=== PATIENT | male | born 1955 | race Caucasian/White ===

== ENCOUNTER 2019-01-02 16:14 | Inpatient (IN) | payer MEDICAID ==
[~2019-01-02] VITALS: Ht 180.3 cm; Wt 151.5 kg
[~2019-01-02 16:14] MED LIST: BUPIVACAINE /PF 0.5% 30 ML VIAL INJ ONE; LR 1,000 ML IV.SOLN IV ONE; MIDAZOLAM HCL 5 MG/5 ML VIAL IVP ONE; NS IRRIG SOLN 1000 ML IR ONE; PROPOFOL 200MG/ 20ML VIAL (DIPRIVAN) IV ONE
[2019-01-02 16:19] VITALS: BP_SYST 143
--- NOTE | 2019-01-02 16:21 | NUR ---
Patient presented to ER with shortness of breath x4 days. Patient arrived BLS from [facility]; patient of [facility] x 8 days. Patient A&Ox4, afebrile, skin pink, capillary refill less than 3 seconds, ambualtory with walker, saturation 100% on Room Air, tachynea noted with respirations equal bilat. Patient states he has had SOB x4 days with pain 6/10, lower back pain 7/10, denies N/V/D at htis time. Patient placed on cardiac monito and pilse-ox upon arrival, will continue to monitor
--- NOTE | 2019-01-02 16:25 | NUR ---
Placed in room 01 . Placed on potline monitor, blood pressure machine and pulse oximeter. To gown for exam. Side rails up. Report given to Africa ADDISON.
--- NOTE | 2019-01-02 16:51 | NUR ---
ER Dr. Mcguire at bedside examining patient.
[2019-01-02] MEDS ORDERED: ALBMDI INH (16:53)
[2019-01-02] MEDS ORDERED: ACET-2165 PO (16:53)
[2019-01-02] MEDS ORDERED: RISP3TAB5 PO (16:53)
[2019-01-02] MEDS ORDERED: AMLO5TAB4 PO (16:53)
[2019-01-02] MEDS ORDERED: LITH150C PO (16:53)
[2019-01-02] MEDS ORDERED: SULF1TAB48 PO (16:53)
[2019-01-02] MEDS ORDERED: VIS50 PO (16:53)
[2019-01-02] MEDS ORDERED: REM15 PO (16:53)
[2019-01-02] MEDS ORDERED: ATRMDI INH (16:53)
[2019-01-02] MEDS ORDERED: CAT.1 PO (16:53)
[2019-01-02] MEDS ORDERED: LIP20 PO (16:53)
[2019-01-02] MEDS ORDERED: TRAZ-218 PO (16:53)
[2019-01-02] MEDS ORDERED: MOM PO (16:53)
[2019-01-02] MEDS ORDERED: ANT30 PO (16:53)
--- NOTE | 2019-01-02 16:54 | NUR ---
Medication reconciliation completed with information provided by facility. Any prior medication reconciliation on file was reviewed and corrected.
[2019-01-02] MEDS ORDERED: IPRATROPIUM/ALBUTEROL SULFATE 3 ML AMPUL.NEB (DUONEB) INH ONE (17:00)
--- NOTE | 2019-01-02 17:02 | NUR ---
Lab at bedside for blood draw
--- NOTE | 2019-01-02 17:04 | NUR ---
Respiratory at bedside for breathing tx
--- NOTE | 2019-01-02 17:17 | NUR ---
Radiology staff at bedside for x-ray
[2019-01-02 17:45] LABS: HEMATOCRIT 31.6 % (36-54); HEMOGLOBIN 10.5 g/dL (14.0-18.0); MEAN CORPUSCULAR HEMOGLOBIN 31 pg (27-31); MEAN CORPUSCULAR HGB CONC 33 % (32-36); MEAN CORPUSCULAR VOLUME 94 fL (79.0-98.0); PLATELET COUNT (AUTO) 263 K/uL (130-430); RED BLOOD CELL COUNT(AUTO) 3.38 MIL/uL (4.2-6.2); RED CELL DISTRIBUTION WIDTH 13.9 % (9.0-15.0); WHITE BLOOD COUNT (AUTO) 10.6 K/uL (4.8-10.8)
[2019-01-02 17:46] LABS: BASOPHILS % (AUTO) 0.4 % (0.0-2.0); EOSINOPHILS # (AUTO) 0.3 K/uL (0.0-0.4); EOSINOPHILS % (AUTO) 2.8 % (0.0-4.0); LYMPHOCYTES # (AUTO) 1.4 K/uL (1.0-5.5); LYMPHOCYTES % (AUTO) 13.5 % (20.5-51.5); MONOCYTES # (AUTO) 0.6 K/uL (0.0-1.0); MONOCYTES % (AUTO) 6.1 % (1.7-9.3); NEUTROPHILS # (AUTO) 8.1 K/uL (1.8-7.7); NEUTROPHILS % (AUTO) 77.2 % (40.0-70.0)
[2019-01-02 17:58] LABS: CALCIUM 8.8 mg/dL (8.4-11.0); CREATININE 0.79 mg/dL (0.55-1.30); INR 0.9 (0.80-1.20); POTASSIUM 4.5 mmol/L (3.5-5.1); PROTHROMBIN TIME 9.5 SECS (9.5-12.5)
[2019-01-02 18:03] LABS: TOTAL BILIRUBIN 0.3 mg/dL (0.0-1.0)
--- NOTE | 2019-01-02 18:15 | NUR ---
Patient in [facility]
--- NOTE | 2019-01-02 19:17 | NUR ---
ER at bedside discussing admission with patient.
--- NOTE | 2019-01-02 19:20 | NUR ---
Report given to Andree ADDISON
[2019-01-02 20:16] LABS: BILIRUBIN,URINE NEGATIVE (NEGATIVE); BLOOD, URINE NEGATIVE (NEGATIVE); CLARITY/URINE CLEAR (CLEAR); COLOR,URINE YELLOW (YELLOW); GLUCOSE,URINE NEGATIVE (NEGATIVE); KETONES,URINE NEGATIVE (NEGATIVE); LEUKOCYTE ESTERASE ,URINE NEGATIVE (NEGATIVE); NITRITE, URINE NEGATIVE (NEGATIVE); PH,URINE 6.5 (5.0-8.0); PROTEIN URINE NEGATIVE (NEGATIVE); UROBILINOGEN,URINE 0.2 (0.2-1.0)
--- NOTE | 2019-01-02 20:48 | NUR ---
Spoke to nurse at [facility]. She says that pt is on voluntary hold and she will fax corresponding progress note.
--- NOTE | 2019-01-02 21:00 | NUR ---
Patient will be admitted to care of Dr. Boo. Admitted to Tele unit. Will go to room 111B. Belongings list completed. Summary report printed. Report will be given at bedside.
--- NOTE | 2019-01-02 21:05 | NUR ---
Received fax from Nancy for pt request for voluntary admission. Placed in chart.
[2019-01-02 21:25] VITALS: BP_SYST 111
--- NOTE | 2019-01-02 21:25 | NUR ---
ADMISSION NOTE Received patient from ER via gurney. Patient admitted with diagnosis of COPD EXACERBATION. Patient is awake, alert, oriented X 4. Patient oriented to hospital room, call light, toileting, pain management and safety-teach back done. Patient informed that CLARITA will be HIS nurse and that their room number is 111B. Personal belongings checked and Belongings List documented. Call light within reach.
--- NOTE | 2019-01-02 21:25 | NUR ---
Transfer to Tele via ACLS protocol. Licensed nurse present. IV present no signs or symptoms of infiltration.
--- NOTE | 2019-01-02 21:27 | NUR ---
No Suicidal Ideation Patient denies suicidal ideation at this time. Will continue to monitor.
[2019-01-02 21:35] VITALS: BP_SYST 105
[2019-01-02 21:54] VITALS: BP_SYST 143
[2019-01-02] MEDS ORDERED: IPRATROPIUM/ALBUTEROL SULFATE 3 ML AMPUL.NEB (DUONEB) INH SCH (23:00)
[2019-01-02] MEDS ORDERED: MAG-AL HYDROX/SIMETH 30 ML UDC PO PRN (23:15)
[2019-01-02] MEDS ORDERED: traZODone HCL 50 MG TABLET (DESYREL) PO PRN (23:15)
[2019-01-02] MEDS ORDERED: LORazepam 2 MG/ML VIAL IVP PRN (23:15)
[2019-01-02] MEDS ORDERED: MILK OF MAGNESIA 30 ML UDC PO PRN (23:15)
[2019-01-02] MEDS ORDERED: MIRTAZAPINE 15 MG TABLET PO ONE (23:15)
[2019-01-02] MEDS ORDERED: cloNIDine HCL 0.1 MG TABLET PO PRN (23:15)
[2019-01-02] MEDS ORDERED: risperiDONE 1 MG TABLET (RisperDAL) PO ONE (23:15)
--- NOTE | 2019-01-02 23:30 | NUR ---
Rounds Patient is resting at this time. No c/o pain and no s/s of any distress noted. Call light in reach, will cont to monitor.
[2019-01-02] MEDS: BACITRACIN ZINC 15 GM TOPICAL OINTMENT TP SCH (23:45)
[2019-01-02] MEDS ORDERED: ENOXAPARIN SODIUM 40 MG/0.4 ML SYRINGE SUBCUT ONE (23:45)
--- NOTE | 2019-01-03 00:56 | NUR ---
CONSULT: CONSULT CALLED FOR DR. ELLER I SPOKE WITH OMEROELENITA PATTERSON REASON FOR CONSULT: DEPRESSION REQUESTING CONSULT: DR. WASHINGTON SOAP GRINDER PHONE NUMBER: [phone]
[2019-01-03 01:18] VITALS: BP_SYST 115
--- NOTE | 2019-01-03 01:30 | NUR ---
Rounds Patient is resting comfortably at this time. No c/o pain and no s/s of any distress noted. Call light in reach, will cont to monitor.
[2019-01-03] MEDS: IPRATROPIUM/ALBUTEROL SULFATE 3 ML AMPUL.NEB (DUONEB) INH PRN (03:13)
--- NOTE | 2019-01-03 03:30 | NUR ---
Rounds Assisted to the bathroom and safely back to bed. Will cont to monitor.
[2019-01-03] MEDS ORDERED: CLINDAMYCIN 600 mg/50mL D5W 50 ML IV ONE (04:07)
--- NOTE | 2019-01-03 07:05 | NUR ---
End of shift note Patient is awake waiting for breakfast. No c/o pain and no s/s of any distress noted. All needs met and anticipated by nurses. Will endorse care to incoming nurse.
--- NOTE | 2019-01-03 07:20 | NUR ---
RN OPENING NOTE RECEIVED SBAR REPORT AT BEDSIDE FROM ENDORSING RN. SEE VS FLOW SHEET.
[2019-01-03 07:38] LABS: CALCIUM 8.5 mg/dL (8.4-11.0); CREATININE 0.78 mg/dL (0.55-1.30); POTASSIUM 4.3 mmol/L (3.5-5.1)
[2019-01-03 07:51] LABS: ALBUMIN 2.5 g/dL (3.4-4.8); FREE T4 (FREE THYROXINE) 1.1 ng/dl (0.8-1.5); THYROID STIMULATING HORMONE 0.38 uIu/mL (0.36-3.74); TOTAL BILIRUBIN 0.2 mg/dL (0.0-1.0)
[2019-01-03 07:57] VITALS: BP_SYST 120
[2019-01-03 08:15] LABS: HEMATOCRIT 29.7 % (36-54); HEMOGLOBIN 9.8 g/dL (14.0-18.0); MEAN CORPUSCULAR HEMOGLOBIN 31 pg (27-31); MEAN CORPUSCULAR HGB CONC 33 % (32-36); MEAN CORPUSCULAR VOLUME 94 fL (79.0-98.0); PLATELET COUNT (AUTO) 241 K/uL (130-430); RED BLOOD CELL COUNT(AUTO) 3.17 MIL/uL (4.2-6.2); RED CELL DISTRIBUTION WIDTH 13.7 % (9.0-15.0); WHITE BLOOD COUNT (AUTO) 7.4 K/uL (4.8-10.8)
[2019-01-03 08:16] LABS: BASOPHILS % (AUTO) 0.6 % (0.0-2.0); EOSINOPHILS # (AUTO) 0.2 K/uL (0.0-0.4); EOSINOPHILS % (AUTO) 2.5 % (0.0-4.0); LYMPHOCYTES % (AUTO) 13.2 % (20.5-51.5); MONOCYTES # (AUTO) 0.5 K/uL (0.0-1.0); MONOCYTES % (AUTO) 6.8 % (1.7-9.3); NEUTROPHILS # (AUTO) 5.7 K/uL (1.8-7.7); NEUTROPHILS % (AUTO) 76.9 % (40.0-70.0)
[2019-01-03] MEDS: CLINDAMYCIN 600 MG in D5W 50 ML IV SCH ×5 (08:53→17:26)
[2019-01-03] MEDS: risperiDONE 1 MG TABLET (RisperDAL) PO SCH ×2 (08:54→20:36)
[2019-01-03] MEDS: ATORVASTATIN 20 MG TABLET PO SCH (08:55)
[2019-01-03] MEDS: LACTOBACILLUS RHAMNOSUS GG 1 CAP CAPSULE PO SCH ×2 (08:55→20:36)
[2019-01-03] MEDS: BACITRACIN ZINC 15 GM TOPICAL OINTMENT TP SCH ×2 (08:55→20:37)
[2019-01-03] MEDS: amLODIPine BESYLATE 5 MG TABLET PO SCH (08:55)
--- NOTE | 2019-01-03 10:00 | NUR ---
SUICIDAL FOLLOW-UP PT STATED NO SI, AND SAID HE IS RELAXED AND COMFORTABLE.
--- NOTE | 2019-01-03 10:18 | NUR ---
Nutrition Update Elgin Scale 16 noted. Pt admitted for COPD exacerbation. Diet: regular BMI: 46.7 kg/m2 RD to follow per nutrition care standards.
[2019-01-03 10:26] LABS: LITHIUM 0.24 mEq/L (0.50-1.0)
[2019-01-03] MEDS: IPRATROPIUM/ALBUTEROL SULFATE 3 ML AMPUL.NEB (DUONEB) INH SCH ×2 (10:36→11:57)
[2019-01-03 12:08] VITALS: BP_SYST 102
[2019-01-03 16:02] VITALS: BP_SYST 116
[2019-01-03] MEDS: ACETAMINOPHEN 325 MG TABLET PO PRN (17:35)
--- NOTE | 2019-01-03 18:30 | NUR ---
CLOSING NOTE PT RESTING IN BED, CLEAN AND DRY, STATING HE IS COMFORTABLE AND ALL HIS NEEDS HAVE BEEN MET.
--- NOTE | 2019-01-03 19:35 | NUR ---
CHANGE OF SHIFT: pt. endorsed by day shift, awake, alert and oriented, on high fowlers position, O2 @ 1l/nc., some wheezing noted but denies any resp. distress. IV lock on left hand for IV antibiotic. noted swelling on both upper and lower extremities. Dr. Boo saw him earlier as reported. moves all extremitoes but weak due to his weight. call light within reach.
[2019-01-03 20:00] VITALS: BP_SYST 112
--- NOTE | 2019-01-03 20:00 | NUR ---
NOTES; RT here and breathing treatment given. VS checked. O2 sat 95% on !l/nc.
[2019-01-03] MEDS: MIRTAZAPINE 15 MG TABLET PO SCH (20:36)
[2019-01-03] MEDS: LITHIUM CARBONATE 150 MG CAPSULE PO SCH (20:37)
[2019-01-03] MEDS: ENOXAPARIN SODIUM 40 MG/0.4 ML SYRINGE SUBCUT SCH (20:54)
[2019-01-03] MEDS ORDERED: MIRTAZAPINE 15 MG TABLET PO SCH (21:00)
--- NOTE | 2019-01-03 21:00 | NUR ---
NOTES: due po meds given and tolerated well, IV antibiotic infusing via left hand. Addendum: 01/04/19 at 0412 by Kimberley Chen RN noted rt. inner thigh wound swollen and red, Bacitracin ointment applied as ordere. dry heel scab on rt. foot.dry dressing came off.
--- NOTE | 2019-01-03 22:30 | NUR ---
NOTES: maintained bed rest, been using urinal to void. pt. needs attended. keep HOB elevated for easier breathing.
--- NOTE | 2019-01-04 00:01 | NUR ---
NOTES: pt. sleeping when checked, no acute distress. continue to monitor.
[2019-01-04 00:04] VITALS: BP_SYST 114
--- NOTE | 2019-01-04 02:09 | NUR ---
NOTES: checked pt. leads came off, pt. sleeping soundly, voided per urinal.
--- NOTE | 2019-01-04 04:12 | NUR ---
NOTES; wound care consult for rt. inner thigh wound. pt. sleeping in no distress.
--- NOTE | 2019-01-04 05:57 | NUR ---
NOTES: pt. got up with assistance by PUBLIC HEALTH ASSISTANT ,ambulated to the restroom.
[2019-01-04] MEDS: CLINDAMYCIN 600 MG in D5W 50 ML IV SCH ×5 (06:00→18:26)
--- NOTE | 2019-01-04 06:45 | NUR ---
CLOSING NOTES;;pt. comfortable, still sleeping, O2 0n . IV lock intact. for further care and observation.
[2019-01-04] MEDS: IPRATROPIUM/ALBUTEROL SULFATE 3 ML AMPUL.NEB (DUONEB) INH SCH ×4 (07:32→21:34)
[2019-01-04 07:35] VITALS: BP_SYST 126
[2019-01-04 07:41] LABS: BASOPHILS % (AUTO) 0.6 % (0.0-2.0); EOSINOPHILS % (AUTO) 3.4 % (0.0-4.0); HEMOGLOBIN 9.3 g/dL (14.0-18.0); LYMPHOCYTES % (AUTO) 19.1 % (20.5-51.5); MEAN CORPUSCULAR HEMOGLOBIN 31 pg (27-31); MEAN CORPUSCULAR HGB CONC 33 % (32-36); MEAN CORPUSCULAR VOLUME 93 fL (79.0-98.0); MONOCYTES % (AUTO) 8.2 % (1.7-9.3); NEUTROPHILS % (AUTO) 68.7 % (40.0-70.0); PLATELET COUNT (AUTO) 250 K/uL (130-430); RED BLOOD CELL COUNT(AUTO) 3.02 MIL/uL (4.2-6.2); RED CELL DISTRIBUTION WIDTH 13.5 % (9.0-15.0); WHITE BLOOD COUNT (AUTO) 5.8 K/uL (4.8-10.8)
[2019-01-04 07:42] LABS: CALCIUM 8.5 mg/dL (8.4-11.0); CREATININE 0.78 mg/dL (0.55-1.30); POTASSIUM 3.8 mmol/L (3.5-5.1)
[2019-01-04 07:42] LABS: EOSINOPHILS # (AUTO) 0.2 K/uL (0.0-0.4); LYMPHOCYTES # (AUTO) 1.1 K/uL (1.0-5.5); MONOCYTES # (AUTO) 0.5 K/uL (0.0-1.0)
--- NOTE | 2019-01-04 07:50 | NUR ---
Opening notes, Received patient in bed. Patient is , awake, and alert, oriented to person, place, time, and event. Pt is afebrile. Vitals wnl. Patient does not appear in any acute distress and denies any pain. Breathing is unlabored and even. IV access intact and patent. Call light in reach. Patient was educated with regards to use of call light and fall precautions..
[2019-01-04 07:56] LABS: TOTAL IRON BIND. CAPACITY 242 ug/dL (250-450)
[2019-01-04] MEDS: LACTOBACILLUS RHAMNOSUS GG 1 CAP CAPSULE PO SCH ×2 (08:39→20:51)
[2019-01-04] MEDS: ATORVASTATIN 20 MG TABLET PO SCH (08:39)
[2019-01-04] MEDS: risperiDONE 1 MG TABLET (RisperDAL) PO SCH ×2 (08:39→20:51)
[2019-01-04] MEDS: BACITRACIN ZINC 15 GM TOPICAL OINTMENT TP SCH ×2 (08:40→21:00)
[2019-01-04] MEDS: amLODIPine BESYLATE 5 MG TABLET PO SCH (08:42)
[2019-01-04] MEDS ORDERED: MULTIVITS,CA,MINERALS/IRON/FA 1 TABLET PO SCH (09:00)
--- NOTE | 2019-01-04 11:22 | NUR ---
WOUND EVALUATION: Late note for 1122 secondary to patient care. Wound Consult received from Dr. Boo. Thank you, Dr. Boo, for the consult. Patient received in a [place] Bed with a mattress, awake, alert, and oriented x 3. Patient is able to turn in bed independently, and ambulate with standby assist. Elgin Score is a 13. Past Medical History: COPD, Depression. Recent Labs: WBC 5.8, RBC 3.02, hemoglobin 9.3, hematocrit 28.0, sodium 132, glucose 110, iron 38, TIBC 242, serum total protein 5.9, albumin 2.5, d-dimer 569. Microbiology: MRSA screen results in progress. Wound culture results in progress. Intrinsic factors that delay wound healing: COPD, Hypoalbuminemia. Extrinsic factors that delay wound healing: Decreased mobility. Wound Assessment: 1. Left medial proximal thigh: Abscess, present on admission. Wound bed has 100% pink tissue. No odor, no drainage. Surrounding tissue has erythema, calor, and induration. Open area of abscess measures 0.2 cm x 0.2 cm. Recommend: Cleanse wound with normal saline. Apply SurePrep to fiona-wound. Apply bacitracin as ordered. Cover with foam dressing. Perform wound care daily, and as needed for dressing soiling or dislodgement. 2. Right medial lower extremity, right lateral to malleolus: Ulceration, present on admission. Wound bed has 100% dark yellow slough. No odor, no drainage. Periwound intact. Wound measures 1.2 cm x 1.8 cm. Recommend: Cleanse wound with normal saline. Apply SurePrep to fiona-wound. Apply bacitracin as ordered, then apply Venelex ointment to wound bed. Cover with foam dressing. Perform wound care daily, and as needed for dressing soiling or dislodgement. 3. Right posterior heel/Achilles area: Chronic wound, present on admission. Wound bed has 90% brown eschar, 10% yellow eschar. No odor, no drainage. Dry, stable. Wound measures 1.0 cm x 0.8 cm. Recommend: Cover with foam dressing. Change dressing and assess site daily, and as needed for dressing soiling or dislodgement. 4. Right second toe, medial to nailbed: Chronic wound, present on admission. Wound bed has 100% brown eschar. No odor, no drainage. Dry, stable. Wound measures 0.9 cm x 0.6 cm. Recommend: No dressing needed. [place] toe with Betadine. Perform site care daily. Also recommend: Encourage and assist patient as needed with repositioning every 2 hours with pillow support, and off-load pressure areas with pillows for pressure re-distribution. Offload, elevate and float bilateral heels with pillows. Perform skin care and monitor skin integrity Q shift. Use moisture barrier cream on buttocks and other moisture susceptible areas QID and as needed for soiling.
[2019-01-04 12:02] VITALS: BP_SYST 116
--- NOTE | 2019-01-04 12:38 | NUR ---
Dietitian Recommendations * Recommend continuing regular diet per LP, RD Please refer to Nutrition Assessment for details.
--- NOTE | 2019-01-04 13:37 | NUR ---
Social Service Note: [facility] attempted to see pt; pt sleeping, audibly snoring in bed. PRESS MANAGER called pt's name several times. PRESS MANAGER will follow up with pt when awake. Addendum: 01/04/19 at 1608 by Elke Lee LCSW PRESS MANAGER met with pt at bedside; pt confirms that he is homeless; pt was at [place] for about a week; pt would like to return to [place] to finish treatment and retrieve his belongings. Pt denies any suicidal ideations at this time. [facility] spoke with pt about homeless resources. [facility] provided pt with the following resources: homeless assistance, outpatient mental health, critical access hospital clinics, [facility] Social Service Offices, and Social Security offices. Pt states that he has no other needs at this time. Pt states that he was staying at the [facility] before going to [place]. Pt does want to return to [place] to finish his treatment.
--- NOTE | 2019-01-04 14:36 | NUR ---
CONSULTATION PAGED/CALLED Reason for Consultation: ABCESS Person Who was Notified: RUBA Consulting Physician: KIMBERLY DO Railroad Brake Repairer Specialty: SURGERY Ordering Physician: DR. WASHINGTON
[2019-01-04 16:02] VITALS: BP_SYST 133
--- NOTE | 2019-01-04 18:35 | NUR ---
CLOSING NOTES, PT HAS BEEN STABLE THE WHOLE SHIFT. WOUND CARE NURSE SEEN PT, WOUND CARE DONE. IV ABX GIVEN.
--- NOTE | 2019-01-04 19:30 | NUR ---
OPENING NOTE Received patient awake and resting supine. US tech at bedside for procedure. IV to RFA. Bed is locked to lowest position and bed alarm is on. Call light w/in reach, will monitor.
[2019-01-04 20:00] VITALS: BP_SYST 128
[2019-01-04] MEDS: MIRTAZAPINE 15 MG TABLET PO SCH (20:51)
[2019-01-04] MEDS: LITHIUM CARBONATE 150 MG CAPSULE PO SCH (20:51)
[2019-01-04] MEDS: MULTIVITS,CA,MINERALS/IRON/FA 1 TABLET PO SCH (20:52)
[2019-01-04] MEDS: ENOXAPARIN SODIUM 40 MG/0.4 ML SYRINGE SUBCUT SCH (20:53)
--- NOTE | 2019-01-04 20:55 | NUR ---
s/w Spoke w/Dr. Hughes. I called and read results of preliminary report from US study. No orders received. Filed paper in chart.
[2019-01-04] MEDS: BALSAM PERU/CASTOR OIL 60 GM OINT...G. TP SCH (21:00)
--- NOTE | 2019-01-04 21:40 | NUR ---
NOTES IV to right hand is none-patent. It was removed, catheter tip visualized, no active bleeding noted.
[2019-01-05] MEDS: CLINDAMYCIN 600 MG in D5W 50 ML IV SCH ×5 (00:45→23:00)
--- NOTE | 2019-01-05 00:50 | NUR ---
NOTES Administered due antibiotic. Patient educated on side effects. Patient tolerating. Will monitor.
[2019-01-05 02:11] VITALS: BP_SYST 119
--- NOTE | 2019-01-05 03:24 | NUR ---
NOTES Patient is resting w/eyes closed, symmetrical rise and fall of chest. Call light is near. Will monitor.
[2019-01-05] MEDS: IPRATROPIUM/ALBUTEROL SULFATE 3 ML AMPUL.NEB (DUONEB) INH PRN (04:39)
--- NOTE | 2019-01-05 04:48 | NUR ---
NOTES Patient reported shortness of breath. RT was called for a breathing treatment. Will monitor.
--- NOTE | 2019-01-05 05:52 | NUR ---
Follow up Consult for Dr. Romero re: depression. Faxed face sheet. Addendum: 01/05/19 at 0604 by Tere Chang AR/ spoke to Dr. Matt Guerin Sambin is supply person for Dr. Romero
--- NOTE | 2019-01-05 06:15 | NUR ---
NOTES IV on rt hand was noted pulled out. Will re-start new IV. Lab at bedside for lab draw.
--- NOTE | 2019-01-05 06:35 | NUR ---
IV start New IV, 22 G was inserted to right hand on second attempt. Blood return noted. IV antibiotics infusing as ordered.
--- NOTE | 2019-01-05 07:25 | NUR ---
closing note Endorsed report to CYN Shah.
[2019-01-05] MEDS: IPRATROPIUM/ALBUTEROL SULFATE 3 ML AMPUL.NEB (DUONEB) INH SCH ×4 (07:38→19:56)
[2019-01-05 08:00] VITALS: BP_SYST 129
--- NOTE | 2019-01-05 08:00 | NUR ---
AM NOTES IN BED, AWAKE ALERT AND ORIENTED. ON O2 2L, TOLERATING WELL. DENIES ANY CHEST PAIN OR DISCOMFORT. IVL. USES URINAL AT NIGHTS. SAFETY PRECAUTION OBSERVED. CALL LIGHT WITHIN REACH. AFEBRILE. SINUS TACH ON THE MONITOR.
[2019-01-05] MEDS: ATORVASTATIN 20 MG TABLET PO SCH (08:56)
[2019-01-05] MEDS: risperiDONE 1 MG TABLET (RisperDAL) PO SCH (08:56)
[2019-01-05] MEDS: MULTIVITS,CA,MINERALS/IRON/FA 1 TABLET PO SCH ×2 (08:57→20:29)
[2019-01-05] MEDS: amLODIPine BESYLATE 5 MG TABLET PO SCH (08:57)
[2019-01-05] MEDS: LACTOBACILLUS RHAMNOSUS GG 1 CAP CAPSULE PO SCH ×2 (08:57→20:29)
--- NOTE | 2019-01-05 09:05 | NUR ---
NOTES- AMBULATE WITH PHYSICAL THERAPY WITH FRONT WHEEL WALKERM AT THIS TIME. DENIES ANY PAIN OR DISCOMFORT.
[2019-01-05 10:32] LABS: CALCIUM 8.8 mg/dL (8.4-11.0); CREATININE 0.79 mg/dL (0.55-1.30); POTASSIUM 3.9 mmol/L (3.5-5.1)
[2019-01-05 10:40] LABS: HEMOGLOBIN 10.2 g/dL (14.0-18.0); RED BLOOD CELL COUNT(AUTO) 3.34 MIL/uL (4.2-6.2); WHITE BLOOD COUNT (AUTO) 5.6 K/uL (4.8-10.8)
[2019-01-05 10:41] LABS: BASOPHILS % (AUTO) 0.5 % (0.0-2.0); EOSINOPHILS # (AUTO) 0.3 K/uL (0.0-0.4); EOSINOPHILS % (AUTO) 4.7 % (0.0-4.0); HEMATOCRIT 31.2 % (36-54); LYMPHOCYTES # (AUTO) 0.9 K/uL (1.0-5.5); LYMPHOCYTES % (AUTO) 16.3 % (20.5-51.5); MEAN CORPUSCULAR HEMOGLOBIN 30 pg (27-31); MEAN CORPUSCULAR HGB CONC 33 % (32-36); MEAN CORPUSCULAR VOLUME 93 fL (79.0-98.0); MONOCYTES # (AUTO) 0.4 K/uL (0.0-1.0); MONOCYTES % (AUTO) 7.2 % (1.7-9.3); NEUTROPHILS % (AUTO) 71.3 % (40.0-70.0); PLATELET COUNT (AUTO) 262 K/uL (130-430); RED CELL DISTRIBUTION WIDTH 13.7 % (9.0-15.0)
[2019-01-05] MEDS: BACITRACIN ZINC 15 GM TOPICAL OINTMENT TP SCH ×2 (10:52→20:30)
[2019-01-05 11:08] VITALS: BP_SYST 129
--- NOTE | 2019-01-05 11:09 | NUR ---
Nutrition F/U Admitting Diagnosis COPD Reviewed Pertinent Medical/Surgical Hx Medical Record Patient Primary RN Medical History Comment: PMH: COPD, depression per MD notes Pt also found w/ cellulitis w/ ulceration of R leg, obesity, depression, moderate protein malnutrition per MD notes Subjective Information Nutrition Consult received for abscess Right Medial Proximal thigh and wounds. Pt seen in bed, reported excellent appetite. No abd discomfort at time of visit. Per RN, no order for surgery. Last BM 01/05/19 x2. Rodrigo is warranted for wound healing. Current diet order remains appropriate. Current Diet Order/Nutrition Support Regular x2 days Pertinent Medications theragran, remeron, culturelle, lovenox, lipitor Pertinent Labs Na 132L, BG 110H, Iron 38L, Alb 2.5L Height (Feet) 5 feet Height (Inches) 11.00 inches Weight (Pounds) 334 pounds Weight (Calculated Kilograms) 151.708284 kilograms Patient Weight 151.5 kg Body Mass Index 46.58 kg/m2 %IBW 195 [place]/Adjusted Body Weight IBW: 172 lb, 78 kg. Adj IBW (obesity): 213 lb, 97 kg Weight Status Morbidly Obese Last BM Jan 05, 2019 Usual Diet At Home Low salt/cholesterol per EMR Skin Integrity Comment: Elgin scale: 17; Per Shock Absorption Floor Layer note 01/04/19: 1. Left medial proximal thigh: Abscess, present on admission. 2. Right medial lower extremity, right lateral to malleolus: Ulceration, present on admission. 3. Right posterior heel/Achilles area: Chronic wound, present on admission. 4. Right second toe, medial to nailbed: Chronic wound, present on admission. Per nursing notes, 1+ pitting edema of Bilateral arm, 2+ pitting edema of BLE. Current % PO Good (75-100%) Estimated Energy Expenditure (kcals/day) 9843-0039 kcal/day (30-35 kcal/kg Adj IBW for infection/wound healing) Estimated Protein Required (g/day) 121-146 gm/day (1.25-1.5 gm/kg Adj IBW for infection/wound healing) Estimated Fluid Required (l/day) 4.6 L/day (30 ml/kg CBW for maintenance) Problem/Etiology/Signs/Symptoms Increased nutritional needs related to metabolic demands as evidenced by estimated nutritional requirements for infection/wound healing. (*ongoing) Expected Outcomes/Goals - Monitor appetite and PO intakes w/ goal of pt meeting at least 75% of estimated nutritional needs, labs trending WNL, normal GI function, and skin integrity/wt maintenance Dietitian Recommendations * Recommend adding Rodrigo BID for wound healing. ONS will provide additional 160 kcal, 5 gm protein daily. Follow Up Moderate Risk: F/U in 3-5 days
--- NOTE | 2019-01-05 11:17 | NUR ---
Dietitian Recommendations * Recommend adding Rodrigo BID for wound healing. ONS will provide additional 160 kcal, 5 gm protein daily. Please see Nutrition F/U note for details. ALEXIS, RD
[2019-01-05] MEDS: BALSAM PERU/CASTOR OIL 60 GM OINT...G. TP SCH (11:43)
[2019-01-05 12:18] VITALS: BP_SYST 135
--- NOTE | 2019-01-05 14:00 | NUR ---
Notes- in bed, resting. denies any pain or discomfort. report given to brandi at this time.
--- NOTE | 2019-01-05 14:23 | NUR ---
TRANSFER OF CARE PT IN BED AWAKE, ON 2 LITERS NC. PT AMBULATED TO THE RESTROOM WITH FWW, NO DISTRESS NOTED.
[2019-01-05 15:50] LABS: LITHIUM 0.34 mEq/L (0.50-1.0)
[2019-01-05 16:52] VITALS: BP_SYST 136
--- NOTE | 2019-01-05 17:07 | NUR ---
IV CLINDAMYCIN HUNG PT IN BED RESTING NO DISTRESS NOTED.
--- NOTE | 2019-01-05 19:05 | NUR ---
OPENING NOTES PATIENT IN BED AAOX4 AND ABLE TO VERBALIZE NEEDS. LUNGS CLEAR THROUGHOUT WITH NO SOB. HEART SOUNDS WNL. PATIENT IS ABLE TO AMBULATE TO THE BATHROOM WITH THE USE OF THE WALKER. IV ON THE RIGHT HAND 24 GAUGE CLEAN AND INTACT WITH NO S/S OF INFILTRATION. BED ALARM IS ACTIVE. NO COMPLAINTS OF PAIN AT THIS TIME. BED IN LOW LOCKED POSITION. ORIENTED THE PATIENT TO THE ROOM AND USE OF THE CALL LIGHT. SAFETY PRECAUTIONS IN PLACE.
--- NOTE | 2019-01-05 19:08 | NUR ---
closing note all needs met through shift, safety maintained, will endorse care to correctional sergeant.
[2019-01-05 20:00] VITALS: BP_SYST 121
[2019-01-05] MEDS: MIRTAZAPINE 15 MG TABLET PO SCH (20:29)
[2019-01-05] MEDS: LITHIUM CARBONATE 150 MG CAPSULE PO SCH (20:30)
[2019-01-05] MEDS: ENOXAPARIN SODIUM 40 MG/0.4 ML SYRINGE SUBCUT SCH (20:31)
--- NOTE | 2019-01-05 22:15 | NUR ---
TOLERATED PO MEDICATIONS WITH NO ADVERSE REACTIONS. NO COMPLAINT OF PAIN OR SOB. ON 2L NC. APPLIED BACITRACIN ON UPPER INNER THIGH. LEFT OPEN TO AIR DUE TO MOISTURE. SAFETY PRECAUTION IN PLACE AND BED ALARM IS ACTIVE. WILL CONT TO MONITOR.
--- NOTE | 2019-01-06 00:06 | NUR ---
PATIENT IN BED RESTING. NO COMPLAINTS OF RESPIRATORY DISTRESS OR PAIN. ON 2L NC AND TOLERATING WELL. O2 AT 96%. BED ALARM IS ACTIVE. PATIENT IS NPO UNTIL THE MORNING PROCEDURE. WILL CONT TO MONITOR ON ROUNDS.
[2019-01-06 01:07] VITALS: BP_SYST 141
[2019-01-06] MEDS: IPRATROPIUM/ALBUTEROL SULFATE 3 ML AMPUL.NEB (DUONEB) INH SCH ×4 (01:09→19:48)
--- NOTE | 2019-01-06 02:21 | NUR ---
PATIENT IN BED RESTING. PLACED FUNERAL DIRECTOR AND EMBALMER ON LEFT LOWER LEG BRACELET TO CHARGE. NO SOB OR PAIN. WILL CONT TO MONITOR.
--- NOTE | 2019-01-06 04:14 | NUR ---
NO CHANGE IN CONDITION.
[2019-01-06] MEDS: CLINDAMYCIN 600 MG in D5W 50 ML IV SCH ×4 (05:01→23:13)
--- NOTE | 2019-01-06 06:29 | NUR ---
CLOSING NOTES/NEW IV INSERTION PATIENT IN BED RESTING. NEW IV ON THE KELSI 22G, FLUSHED WITH 10CC NS. SITE CLEAN DRY AND INTACT INFUSING CLEOCIN. NO PAIN OR RESPIRATORY DISTRESS. CALL LIGHT WITHIN REACH AND SAFETY PRECAUTIONS IN PLACE. ALL NEEDS HAVE BEEN MET AND WILL ENDORSE CARE TO ONCOMING SHIFT.
--- NOTE | 2019-01-06 07:34 | NUR ---
opening note pt awake alert but confused at this time, banana bag infusing, bed alarm in place with bed in the lowest position. Addendum: 01/06/19 at 2236 by Andria Al RN *WRONG PATIENT NOTE*
--- NOTE | 2019-01-06 07:36 | NUR ---
OPENING NOTE PT AWAKE ALERT, LAB DRAWING BLOOD AT BEDSIDE AT THIS TIME. CALL LIGHT WITHIN REACH. BED ALARM IN PLACE WITH BED IN THE LOWEST POSITION.
[2019-01-06 08:00] VITALS: BP_SYST 120
[2019-01-06] MEDS: MULTIVITS,CA,MINERALS/IRON/FA 1 TABLET PO SCH ×2 (08:14→20:32)
[2019-01-06] MEDS: LACTOBACILLUS RHAMNOSUS GG 1 CAP CAPSULE PO SCH ×2 (08:14→20:32)
[2019-01-06] MEDS: amLODIPine BESYLATE 5 MG TABLET PO SCH (08:14)
[2019-01-06] MEDS: CITALOPRAM HYDROBROMIDE 20 MG TABLET PO SCH (08:14)
[2019-01-06] MEDS: ATORVASTATIN 20 MG TABLET PO SCH (08:14)
[2019-01-06] MEDS: BACITRACIN ZINC 15 GM TOPICAL OINTMENT TP SCH ×2 (09:00→20:33)
--- NOTE | 2019-01-06 11:00 | NUR ---
PT TAKEN TO SURGERY AT THIS TIME VIA JAYNE
[2019-01-06] MEDS ORDERED: ONDANSETRON HCL 4 MG/2 ML VIAL IVP PRN (11:45)
[2019-01-06] MEDS ORDERED: fentaNYL CITRATE/PF 100 MCG/2 ML AMP IVP PRN ×2 (11:45)
--- NOTE | 2019-01-06 12:28 | NUR ---
PT RETURNED FROM SURGERY AT THIS TIME.
[2019-01-06 12:30] VITALS: BP_SYST 127
--- NOTE | 2019-01-06 15:00 | NUR ---
PATIENT RESTING: Patient resting quietly. No acute distress noted. Vital signs within normal range.
[2019-01-06 15:17] VITALS: BP_SYST 107
[2019-01-06] MEDS: ACETAMINOPHEN 325 MG TABLET PO PRN ×2 (16:48→20:31)
--- NOTE | 2019-01-06 17:16 | NUR ---
pt watching tv at this time, no distress noted
--- NOTE | 2019-01-06 18:35 | NUR ---
CLOSING NOTE ALL NEEDS MET THROUGH SHIFT, SAFETY MAINTAINED, WILL ENDORSE CARE TO PRODUCT MANAGENT INTERN.
--- NOTE | 2019-01-06 19:10 | NUR ---
OPENING NOTE Late entry due to patient care. Bedside report received from daysazft nurse. Patient received sitting up in bed, watching TV. No s/s of acute distress noted. Patient denies any pain or discomfort at this time. Breathing is even and unlabored. No active bleeding noted. Dressing on right thigh intact, clean and dry, no drainage or active bleeding noted. Call light with patient. Patient instructed to call for any assistance, patient verbalized understanding. Bed is locked and at lowest position. Will continue to monitor.
[2019-01-06 20:00] VITALS: BP_SYST 116
[2019-01-06] MEDS: MIRTAZAPINE 15 MG TABLET PO SCH (20:32)
[2019-01-06] MEDS: LITHIUM CARBONATE 150 MG CAPSULE PO SCH (20:34)
[2019-01-06] MEDS: ENOXAPARIN SODIUM 40 MG/0.4 ML SYRINGE SUBCUT SCH (20:35)
--- NOTE | 2019-01-06 21:00 | NUR ---
ROUNDS Patient in bed watching TV at this time. No signs of discomfort noted. Chest rise and fall even bilaterally. Call light with patient. Will continue to monitor.
--- NOTE | 2019-01-06 23:00 | NUR ---
ROUNDS Patient in bed, asleep at this time. No s/s of acute distress noted. Breathing even and unlabored. Call light with patient. Will continue to monitor.
[2019-01-07] VITALS: BP_SYST 129
[2019-01-07] MEDS: IPRATROPIUM/ALBUTEROL SULFATE 3 ML AMPUL.NEB (DUONEB) INH SCH ×4 (01:00→19:31)
--- NOTE | 2019-01-07 01:00 | NUR ---
ROUNDS Patient sleeping comfortably at this time. No signs of discomfort noted. Chest rise and fall even bilaterally. Call light with patient. Will continue to monitor.
--- NOTE | 2019-01-07 03:00 | NUR ---
ROUNDS Patient in bed asleep at this time. No s/s of acute distress noted. Breathing even and unlabored. Call light with patient. Will continue to monitor.
--- NOTE | 2019-01-07 05:00 | NUR ---
IV ANTIBIOTIC/CHARGE ANKLET DEVICE IV antibiotic hung at this time, infusing well, IV site patent. Patient requested to have anklet device charge at this time, done by RN. Call light with patient. Will continue to monitor.
[2019-01-07] MEDS: CLINDAMYCIN 600 MG in D5W 50 ML IV SCH ×4 (05:15→23:16)
--- NOTE | 2019-01-07 06:28 | NUR ---
CLOSING NOTES Patient in bed sleeping at this time. No s/s of acute distress noted. Breathing even and unlabored. IV site is patent, no signs of infiltration or infection noted. HOB raised. All needs met throughout shift. Fall and safety precautions maintained throughout shift. Will continue to monitor until patient care is endorsed to oncoming day shift nurse.
[2019-01-07 08:00] VITALS: BP_SYST 114
--- NOTE | 2019-01-07 08:00 | NUR ---
AM NOTES IN BED, EATING BREAKFAST. ON ROOM AIR TOLERATED WELL. DENIES ANY PAIN, PER PT, HE FEELS SHORT OF BREATH AT TIMES ESPECIALLY AFTER WALKING. RITH INNER THIGH DRESSING HAS OLD DRAINAGE. WILL CHANGED DRESSING. IVL. SAFETY PRECAUTION OBSERVED. CALL LIGHT IN REACH. WILL MONITOR.
[2019-01-07] MEDS: ATORVASTATIN 20 MG TABLET PO SCH (08:21)
[2019-01-07] MEDS: CITALOPRAM HYDROBROMIDE 20 MG TABLET PO SCH (08:21)
[2019-01-07] MEDS: MULTIVITS,CA,MINERALS/IRON/FA 1 TABLET PO SCH ×2 (08:21→20:39)
[2019-01-07] MEDS: amLODIPine BESYLATE 5 MG TABLET PO SCH (08:22)
[2019-01-07] MEDS: BALSAM PERU/CASTOR OIL 60 GM OINT...G. TP SCH ×2 (09:00→12:31)
[2019-01-07] MEDS: LACTOBACILLUS RHAMNOSUS GG 1 CAP CAPSULE PO SCH ×2 (09:00→20:39)
--- NOTE | 2019-01-07 10:13 | NUR ---
NOTES AMBULATE WITH PHYSICAL THERAPY WITH FWW, HAS MILD SHORTNESS OF BREATH AFTER WALKING. NO DISTRESS NOTED. RESTING AT THIS TIME. ENC. TO CALL FOR HELP NEEDED.
[2019-01-07 12:24] VITALS: BP_SYST 117
[2019-01-07] MEDS: BACITRACIN ZINC 15 GM TOPICAL OINTMENT TP SCH ×2 (12:31→20:41)
--- NOTE | 2019-01-07 13:22 | NUR ---
NOTES- RESTING IN BED, DENIES ANY PAIN OR DISCOMFORT. NO DISTRESS NOTED.
--- NOTE | 2019-01-07 16:42 | NUR ---
notes- resting in bed, with eyes closed. denies any pain or shortness of breath at this time. will continue to monitor.
[2019-01-07 16:56] VITALS: BP_SYST 134
[2019-01-07] MEDS ORDERED: MULTIVITS,CA,MINERALS/IRON/FA 1 TABLET PO SCH (17:00)
[2019-01-07] MEDS ORDERED: CHOLECALCIFEROL (VITAMIN D3) 2,000 UNIT TABLET PO ONE (17:15)
--- NOTE | 2019-01-07 18:29 | NUR ---
Notes In bed, resting. denies any pain or discomfort. no change in assessment. all needs meet. needs attended.will endorse.
--- NOTE | 2019-01-07 19:10 | NUR ---
OPENING NOTE Bedside report received from dayshift nurse. Patient received resting in bed, no s/s of acute distress noted, patient denies any pain. Breathing is even and unlabored. HOB slightly raised. IV site patent, no signs of infiltration or infection noted. No active bleeding noted. Dressings to right thigh and right ankle intact, clean, and dry. Call light with patient. Will continue to monitor.
[2019-01-07 20:00] VITALS: BP_SYST 103
[2019-01-07] MEDS: MIRTAZAPINE 15 MG TABLET PO SCH (20:39)
[2019-01-07] MEDS: LITHIUM CARBONATE 150 MG CAPSULE PO SCH (20:39)
[2019-01-07] MEDS: ENOXAPARIN SODIUM 40 MG/0.4 ML SYRINGE SUBCUT SCH (20:42)
--- NOTE | 2019-01-07 21:00 | NUR ---
ROUNDS Patient in bed sleeping at this time. No signs of discomfort noted. Chest rise and fall even bilaterally. Call light with patient. Will continue to monitor.
--- NOTE | 2019-01-07 23:00 | NUR ---
IV ANTIBIOTIC HUNG Patient in bed, resting. No s/s of acute distress noted. IV antibiotic hung at this time. Breathing even and unlabored. IV site patent, no signs of infiltration or infection noted. All needs met at this time. Call light with patient. Will continue to monitor.
[2019-01-08] MEDS: IPRATROPIUM/ALBUTEROL SULFATE 3 ML AMPUL.NEB (DUONEB) INH SCH ×3 (00:42→13:51)
--- NOTE | 2019-01-08 03:00 | NUR ---
ROUNDS/EMPTY URINAL Patient in bed sleeping at this time. No s/s of acute distress noted. Breathing even and unlabored. Urinal emptied at this time, clear yellow urine noted. Call light with patient. Will continue to monitor.
[2019-01-08 03:22] VITALS: BP_SYST 128
--- NOTE | 2019-01-08 05:00 | NUR ---
IV ANTIBIOTIC HUNG Patient in bed resting at this time. IV antibiotic hung at this time. IV site patent, no signs of infiltration or infection noted. No SOB, breathing even and unlabored. HOB slightly raised. Call light with patient. Will continue to monitor.
[2019-01-08] MEDS: CLINDAMYCIN 600 MG in D5W 50 ML IV SCH ×2 (05:19→11:56)
--- NOTE | 2019-01-08 06:26 | NUR ---
NEW IV/CLOSING NOTES Patient's IV site accidentally got pulled out, catheter fully intact, no active bleeding noted. New IV site at right thumb, 22 gauge, patent. Patient tolerated procedure well. Patient in bed, watching TV, no s/s of acute distress noted. Breathing even and unlabored. Patient denies any pain or discomfort at this time. Call light with patient. All needs met throughout shift. Fall and safety precautions maintained throughout shift. Will continue to monitor until patient care is endorsed to oncoming dayshift nurse.
--- NOTE | 2019-01-08 07:32 | NUR ---
AM ROUNDS: Awake, oriented x4. Denies any pain. No shortness of breath. Right groin with dressing. Will do wound care today. Left groin/inner thigh with redness possibly due to skin friction secondary to patient's obesity.Right ankle wound with foam dressing changed 01/07/19 at 2200. Plan of care discussed with the patient. Ankle monitoring device on the left. Call light within reach.
[2019-01-08 07:40] VITALS: BP_SYST 121
[2019-01-08 07:48] VITALS: BP_SYST 121
[2019-01-08] MEDS: LACTOBACILLUS RHAMNOSUS GG 1 CAP CAPSULE PO SCH (08:09)
[2019-01-08] MEDS: MULTIVITS,CA,MINERALS/IRON/FA 1 TABLET PO SCH (08:10)
[2019-01-08] MEDS: amLODIPine BESYLATE 5 MG TABLET PO SCH (08:10)
[2019-01-08] MEDS: CITALOPRAM HYDROBROMIDE 20 MG TABLET PO SCH (08:10)
[2019-01-08] MEDS: ATORVASTATIN 20 MG TABLET PO SCH (08:10)
[2019-01-08] MEDS: BACITRACIN ZINC 15 GM TOPICAL OINTMENT TP SCH (08:11)
[2019-01-08] MEDS ORDERED: CHOLECALCIFEROL (VITAMIN D3) 2,000 UNIT TABLET PO SCH (09:00)
[2019-01-08] MEDS: BALSAM PERU/CASTOR OIL 60 GM OINT...G. TP SCH (09:00)
--- NOTE | 2019-01-08 09:50 | NUR ---
Ambulation: Walked in the hallway with PT with front wheelchair.
--- NOTE | 2019-01-08 11:00 | NUR ---
Rounds: Patient is back in bed, sleeping.
[2019-01-08 12:02] VITALS: BP_SYST 122
--- NOTE | 2019-01-08 14:26 | NUR ---
Social Service Note: [facility] has faxed referral to [facility] ([phone] [phone]); [facility] will follow up to see if they can accept pt. Addendum: 01/08/19 at 1517 by Elke FLORESW [facility] spoke with Nik at [facility] who has accepted the pt back; [facility] has asked for pt to be sent to [facility] for Intake. [facility] has set up ambulance with [facility] ([phone]); cigar packer and picker at 4:30pm. Packet has been placed at nurses station.
[2019-01-08] MEDS ORDERED: DOXYCYCLINE HYCLATE 100 MG CAPSULE PO ONE (14:30)
[2019-01-08 15:15] VITALS: BP_SYST 123
--- NOTE | 2019-01-08 15:58 | NUR ---
Discharge report: Report given to Nik (jose jamil). Patient is aware that he will be transferred back to the facility and agreed,
[2019-01-08 16:11] VITALS: BP_SYST 123
--- NOTE | 2019-01-08 17:31 | NUR ---
D/C Patient Patient given medication reconciliation form and D/C instructions. Exit Care provided. Patient verbalized understanding. MD discussed with patient the results and treatment provided. Patient in stable condition, ID band removed. IV catheter removed, intact and dressing applied, no active bleeding. All belongings sent with patient. Monitoring device is on patient's left ankle. [facility] ambulance for transportation.
[2019-01-08] MEDS ORDERED: DOXYCYCLINE HYCLATE 100 MG CAPSULE PO SCH (21:00)
== END 2019-01-08 17:31 | DRG 383 ==
LOC: SED 16:14 → STU 21:05 → SMU 01-05 11:27
PROVIDERS: ADMIT Internal Medicine; ATTEND Internal Medicine
PROC: 0JBL0ZZ Excision of Right Upper Leg Subcutaneous Tissue and Fascia, Open Approach (ICD-10-PCS; principal; 2019-01-06 11:00)
DX: L02.415 Cutaneous abscess of right lower limb (principal); E44.0 Moderate protein-calorie malnutrition; E66.01 Morbid (severe) obesity due to excess calories; F31.4 Bipolar disorder, current episode depressed, severe, without psychotic features; J44.1 Chronic obstructive pulmonary disease with (acute) exacerbation; L03.115 Cellulitis of right lower limb; I10 Essential (primary) hypertension; D64.9 Anemia, unspecified; L97.919 Non-pressure chronic ulcer of unspecified part of right lower leg with unspecified severity; Z59.0 Homelessness; Z87.891 Personal history of nicotine dependence; Z88.0 Allergy status to penicillin; Z79.899 Other long term (current) drug therapy; Z90.81 Acquired absence of spleen; Z68.42 Body mass index [BMI] 45.0-49.9, adult; Z22.322 Carrier or suspected carrier of Methicillin resistant Staphylococcus aureus; Z91.5 Personal history of self-harm
CPT/HCPCS: 36415; 71045; 80048; 80053; 80178-TC; 81003; 83540-TC; 83550-TC; 83735-TC; 83880; 84439; 84443-TC; 84484; 85025; 85379; 85610-TC; 86886; 86900; 86901; 87070; 87070-TC; 87075-TC; 87081; 93005; 93306; 93970; 94640; 94664; 94760; 97110-GP; 97116-GP; 97530-GP; G0378; J1650; J1956; J2250; J2704; J3490; J7060; J7120; J7620